=== PATIENT | male | born 1995 | race Caucasian/White ===

== ENCOUNTER 2019-06-18 11:32 | Emergency (ER) | payer BC ==
[~2019-06-18] VITALS: Ht 190.5 cm; Wt 71.0 kg
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
--- NOTE | 2019-06-18 12:10 | NUR ---
BREAK RN: [facility] AT BEDSIDE. PT DENIES NEEDS. PT AO X 4. RESP EVEN AND UNLABORED. PT ON CONT BP AND O2 MONITORS. CALL LIGHT WITHIN REACH.
[2019-06-18] MEDS ORDERED: ONDANSETRON 2MG/ML, 2ML IVPush ONE (12:30)
[2019-06-18] MEDS ORDERED: ONDANSETRON 2MG/ML, 2ML ONE (12:39)
--- NOTE | 2019-06-18 12:43 | NUR ---
Jakub amaro in EDM - 06/18/19 at 1245 by JOE PT MEDICATED PER VSS. [place] ISSA NOTED AT THIS TIME, PT FINISHING UP STATEMENT WITH [facility]
[2019-06-18 12:44] LABS: BASOPHILS # (AUTO) 0.02 x10^3/uL (0-0.1); BASOPHILS % (AUTO) 0 % (0-1); EOSINOPHILS # (AUTO) 0.13 x10^3/uL (0-0.4); EOSINOPHILS % (AUTO) 1 % (1-7); LYMPHOCYTES # (AUTO) 1.44 x10^3/uL (1-3.4); LYMPHOCYTES % (AUTO) 9 % (22-44); MD NO; MEAN CORPUSCULAR HGB CONC 33.8 g/dL (33.2-36.2); MEAN CORPUSCULAR VOLUME 85.9 fL (81-97); MEAN PLATELET VOLUME 8.8 fL (7.4-10.4); MONOCYTES % (AUTO) 8 % (2-9); NEUTROPHILS # (AUTO) 12.84 x10^3/uL (1.8-6.8); NEUTROPHILS % (AUTO) 82 % (42-75); PLATELET COUNT 197 x10^3/uL (130-400); RED BLOOD COUNT 5.85 x10^6/uL (4.38-5.82); RED CELL DISTRIBUTION WIDTH 12.2 % (9.4-14.8)
--- NOTE | 2019-06-18 12:45 | NUR ---
PT MEDICATED PER MAR, VSS. NAD NOTED AT THIS TIME, PT FINISHING UP STATEMENT WITH [facility]
[2019-06-18 12:53] LABS: ALANINE AMINOTRANSFERASE 36 U/L (12-78); ALBUMIN 4.5 g/dL (3.4-5.0); ANION GAP 11 mmol/L (5-15); CALCIUM 9.1 mg/dL (8.5-10.1); CHLORIDE 109 mmol/L (98-107)
[2019-06-18 12:55] LABS: ALKALINE PHOSPHATASE 83 U/L (45-117); CREATININE 1.09 mg/dL (0.7-1.3); TOTAL PROTEIN 8.1 g/dL (6.4-8.2)
--- NOTE | 2019-06-18 13:40 | NUR ---
CT CALLED TO INFORM OF CT ORDER FOR THIS PT, CT ABD C CONTRAST. ATTEMPTING TO ORDER, [facility] DOWN. CT TO ATTEMPT TO ORDER, TECH WILL COME GET PT.
[2019-06-18] MEDS ORDERED: OMNIPAQUE 350 MG/ML, 100ML BOTTLE ONE (14:22)
--- NOTE | 2019-06-18 14:28 | NUR ---
PT BACK FROM CT AT THIS TIME
[2019-06-18] MEDS ORDERED: KETOROLAC 30 MG/1 ML ONE (14:58)
[2019-06-18] MEDS ORDERED: KETOROLAC 30 MG/1 ML IVPush ONE (15:00)
[2019-06-18 15:47] VITALS: BP 116/75
== END 2019-06-18 15:51 | disposition home or self-care (01) ==
LOC: ED 12:33
DX: S06.0X0A Concussion without loss of consciousness, initial encounter (principal); S01.511A Laceration without foreign body of lip, initial encounter; S05.12XA Contusion of eyeball and orbital tissues, left eye, initial encounter; S05.11XA Contusion of eyeball and orbital tissues, right eye, initial encounter; R07.81 Pleurodynia; Y04.0XXA Assault by unarmed brawl or fight, initial encounter; Y93.89 Activity, other specified; Y92.009 Unspecified place in unspecified non-institutional (private) residence as the place of occurrence of the external cause; Y99.8 Other external cause status
CPT/HCPCS: 36415; 70450; 70486; 71045; 74177; 80053; 80307; 85025; 96374; 96375; 99285; J1885; J2405; Q9967